=== PATIENT | female | born 1980 | race Caucasian/White ===

== ENCOUNTER 2016-10-09 01:08 | Emergency (ER) | payer MEDICAID ==
[~2016-10-09] VITALS: Ht 154.9 cm; Wt 67.1 kg
[~2016-10-09 01:08] MED LIST: PERC5TAB12 PO; PREN0.01 PO
[2016-10-09] MEDS ORDERED: LACTATED RINGER'S 1000 ML INJ 500 ML IV ONE (02:00)
[2016-10-09] MEDS ORDERED: TERBUTALINE INJ 1 MG/ML AMP SQ ONE ×2 (02:00→03:45)
--- NOTE | 2016-10-09 02:06 | PD ---
HPI Chief Complaint Uterine contractions Date Seen: October 09, 2016 Time Seen: 01:45 Travel History International Travel<30 Days: No Contact w/Intl Traveler<30Days: No Known Affected Area: No History of Present Illness HPI Pt is a with EDC 11-21-2016 , making her 33 weeks and 6 days gestation, presenting with uterine contractions that started earlier during the night. Contractions subsequently spaced out and she was able to fall asleep but was then woken up from sleep with another wave of contractions. Contractions are now about 3-4 mnutes apart. No vaginal bleeding, no leaking of active. She reports active FMs No urinary symptoms. No fevers. care under Dr Nela Lopez, this previously uncomplicated. Para: 7 : 6 Miscarriage: 0 : 0 History Obstetric History Obstetric History Pt had c section with second . She has had x4 All deliveries have been at 35 to 36 weeks Past Surgical History Narrative Surgical C Section x 1 Family History Family History: Negative Social History Alcohol Use: No Tobacco Use: No Substance Abuse: No Allergies-Medications (Allergen,Severity, Reaction): Coded Allergies: No Known Allergies (Verified , 10/09/16) Home Meds Active Scripts Nitrofurantoin Monohydrate Macrocrystals (Macrobid)100 Mg [id number] Mg PO BID #10 CAP Ref 0 Prov:Rojelio Huerta MD 10/09/16 Reported Medications Multivit/Min/Fol Ac/Iron/Pren ( Vit ( Plus)) Tab1 Tab PO DAILY #30 Ref 0 08/01/10 Discontinued Reported Medications Oxycodone-Acetaminophen 5-325 mg (Percocet 5-325 mg)Oxycodone 5/325 Acetaminophen Tab1 Tab PO Q6H PRN (PAIN) #30 TAB 11/05/13 Review of Systems Except as stated in HPI: all other systems reviewed are Neg Physical Exam Narrative GENERAL: Well-nourished, well-developed patient. SKIN: Warm and dry. HEAD: Normocephalic and atraumatic. EYES: No scleral icterus. No injection or drainage. ENT: No nasal drainage noted. Mucous membranes pink. Airway patent. NECK: Supple, trachea midline. No JVD. CARDIOVASCULAR: Regular rate and rhythm without murmurs, gallops, or rubs. RESPIRATORY: Breath sounds equal bilaterally. No accessory muscle use. BREASTS: Bilateral exam showed no masses , no retractions, no nipple discharge. ABDOMEN/GI: Abdomen soft, non-tender, bowel sounds present, no rebound, no guarding Gravid to [34-] weeks size Fundal Height: [34cm-] GENITOURINARY: External Genitalia: intact and normal in appearance BUS glands: [-] Cervix: [soft-] Dilatation: [1-2cm] Effacement: [50%] Station: [-3] Presentation: [vertex-] Membranes: [intact] Uterine Contractions: [q 3-4 minutes-] FHT's: Category: [I-] Baseline: [120] Reactive: [YES-] Variability: good[-] Decels: [-] EXTREMITIES: No cyanosis or edema. BACK: Nontender without obvious deformity. No CVA tenderness. NEUROLOGICAL: Awake and alert. Motor and sensory grossly within normal limits. Five out of 5 muscle strength in all muscle groups. Normal speech. Data Data Vital Signs Reviewed: Yes Orders UA, CBC, BMP SQ Terbutaline x 1 MDM Medical Record Reviewed: Yes Plan 36 yo at 33 weeks and 6 days, with contractions but no cervical change. Pt received first dose betamethasone 12mg IM today. We plan second dose Betamethasone 10/10/2016. UA suggestive of UTI. Ancef 2G given and to complete PO MACROBID Diagnosis Diagnosis: Primary Impression: contractions Additional Impression: UTI (urinary tract infection) Disposition: 01 DISCHARGE HOME Condition: Stable Scripts Nitrofurantoin Monohydrate Macrocrystals (Macrobid)100 Mg [id number] Mg PO BID #10 CAP Ref 0 Prov:Rojelio Huerta MD 10/09/16 Patient Instructions: Labor (ED), Urinary Tract Infection in (ED) Rojelio Huerta MD October 09, 2016 02:06
[2016-10-09 02:15] LABS: BACTERIA, URINE RARE /hpf; BLOOD, URINE SMALL (NEG); GLUCOSE,URINE NEG (NEG); KETONE, URINE 40 mg/dL (NEG); MUCUS URINE FEW /lpf (OCC); NITRITE,URINE NEG (NEG); RENAL EPITHELIAL CELLS <1 /hpf; SQUAMOUS EPITHELIAL CELL URINE 1 /hpf (0-5); TRANSITIONAL EPI CELLS, URINE <1 /hpf; URINE COLOR LIGHT-YELLOW (YELLW/STRAW)
[2016-10-09] MEDS ORDERED: BETAMETHASONE SOD PHOS/ACETATE SUSP 30 MG/5 ML VIAL IM ONE (02:15)
[2016-10-09 02:16] LABS: COMMENT (UR) CULTURE INDICATED; CULTURE IF INDICATED CULTURE INDICATED
[2016-10-09 02:21] LABS: AUTOMATED NEUTROPHIL # 6.3 TH/MM3 (1.8-7.7); BASOPHIL % 0.2 % (0.0-2.0); EOSINOPHIL # 0.1 TH/MM3 (0-0.4); EOSINOPHIL % 0.8 % (0.0-4.0); HEMO FLAGS DIFF FINAL; LYMPH % 20.4 % (9.0-44.0); LYMPHOCYTE # 1.9 TH/MM3 (1.0-4.8); MEAN CELL VOLUME 81.4 FL (80.0-100.0); MEAN CORPUSCULAR HEMOGLOBIN 28.4 PG (27.0-34.0); MEAN CORPUSCULAR HGB CONC 34.9 % (32.0-36.0); MONO % 10.3 % (0.0-8.0); NEUT % 68.3 % (16.0-70.0); PLATELET COUNT 207 TH/MM3 (150-450); WHITE BLOOD COUNT 9.3 TH/MM3 (4.0-11.0)
[2016-10-09 02:39] LABS: BICARBONATE 20.8 MEQ/L (21.0-32.0); POTASSIUM 3.4 MEQ/L (3.5-5.1)
[2016-10-09] MEDS ORDERED: ceFAZolin 2 GM PREMIX 50 ML IV ONE (03:30)
[2016-10-09] MEDS ORDERED: MACR100C2 PO (03:31)
[2016-10-10] MEDS ORDERED: BETAMETHASONE SOD PHOS/ACETATE SUSP 30 MG/5 ML VIAL IM ONE (07:15)
== END 2016-10-09 04:17 | disposition home or self-care (01) ==
LOC: HOBED 01:08
DX: O60.03 Preterm labor without delivery, third trimester (principal); O23.43 Unspecified infection of urinary tract in pregnancy, third trimester; B96.89 Other specified bacterial agents as the cause of diseases classified elsewhere; Z3A.33 33 weeks gestation of pregnancy
CPT/HCPCS: 80048; 81001; 85025; 87086; 96361; 96365; 96372; 99284; J0690; J0702; J3105; J7120

== ENCOUNTER → 2016-10-10 | Outpatient (CLI) | payer MEDICAID ==
[~2016-10-10] MED LIST changes: +BETAMETHASONE SOD PHOS/ACETATE SUSP 30 MG/5 ML VIAL IM ONE; +MACR100C2 PO; -PERC5TAB12 PO
== END ==
LOC: HPND 07:32
PROVIDERS: ATTEND Obstetrics & Gynecology
DX: O26.93 Pregnancy related conditions, unspecified, third trimester (principal); O60.03 Preterm labor without delivery, third trimester
CPT/HCPCS: 96372; J0702

== ENCOUNTER 2016-10-23 21:52 | Inpatient (IN) | payer MEDICAID ==
[~2016-10-23 21:52] MED LIST changes: -BETAMETHASONE SOD PHOS/ACETATE SUSP 30 MG/5 ML VIAL IM ONE
--- NOTE | 2016-10-23 22:17 | PD ---
Allergies-Medications (Allergen,Severity, Reaction): Coded Allergies: No Known Allergies (Verified , 10/09/16) Home Meds Active Scripts Nitrofurantoin Monohydrate Macrocrystals (Macrobid)100 Mg [id number] Mg PO BID #10 CAP Ref 0 Prov:Rojelio Huerta MD 10/09/16 Reported Medications Multivit/Min/Fol Ac/Iron/Pren ( Vit ( Plus)) Tab1 Tab PO DAILY #30 Ref 0 08/01/10 Physical Exam AFVSS BP 123/88 Narrative GENERAL: Well-nourished, well-developed patient. SKIN: Warm and dry. HEAD: Normocephalic and atraumatic. EYES: No scleral icterus. No injection or drainage. ENT: No nasal drainage noted. Mucous membranes pink. Airway patent. NECK: Supple, trachea midline. No JVD. CARDIOVASCULAR: Regular rate and rhythm without murmurs, gallops, or rubs. RESPIRATORY: Breath sounds equal bilaterally. No accessory muscle use. BREASTS: Bilateral exam showed no masses , no retractions, no nipple discharge. ABDOMEN/GI: Abdomen soft, non-tender, bowel sounds present, no rebound, no guarding Gravid to [-] weeks size Fundal Height: [-] GENITOURINARY: External Genitalia: intact and normal in appearance BUS glands: [-] Cervix: [-] Dilatation: [-] Effacement: [-] Station: [-] Presentation: [-] Membranes: [intact or ruptured] Uterine Contractions: [-] FHT's: Category: [-] Baseline: [-] Reactive: [-] Variability: [-] Decels: [-] EXTREMITIES: No cyanosis or edema. BACK: Nontender without obvious deformity. No CVA tenderness. NEUROLOGICAL: Awake and alert. Motor and sensory grossly within normal limits. Five out of 5 muscle strength in all muscle groups. Normal speech. MDM Interpretation(s) IUP at 35w 6d Toshia Morris MD Oct 23, 2016 22:17 MDM Interpretation(s) IUP at 35w 6d Toshia Morris MD Oct 23, 2016 22:17
--- NOTE | 2016-10-23 22:26 | PD ---
HPI Travel History International Travel<30 Days: No Contact w/Intl Traveler<30Days: No Known Affected Area: No History of Present Illness HPI at 35w 6d with c/o contractions. Denies LOF/VB. Reports good FM. Reports admission recently for labor- steroid course administered. Para: 6 : 7 History Past Medical History Medical History: Denies Significant Hx Obstetric History Obstetric History C/S x 1, x 5 (all ) Past Surgical History Narrative Surgical C/S Family History Family History: Negative Social History Alcohol Use: No Tobacco Use: No Substance Abuse: No Allergies-Medications (Allergen,Severity, Reaction): Coded Allergies: No Known Allergies (Verified , 10/09/16) Home Meds Active Scripts Nitrofurantoin Monohydrate Macrocrystals (Macrobid)100 Mg [id number] Mg PO BID #10 CAP Ref 0 Prov:Rojelio Huerta MD 10/09/16 Reported Medications Multivit/Min/Fol Ac/Iron/Pren ( Vit ( Plus)) Tab1 Tab PO DAILY #30 Ref 0 08/01/10 Review of Systems Except as stated in HPI: all other systems reviewed are Neg Physical Exam AFVSS BP 123/88 Narrative GENERAL: Well-nourished, well-developed patient. SKIN: Warm and dry. HEAD: Normocephalic and atraumatic. EYES: No scleral icterus. No injection or drainage. ENT: No nasal drainage noted. Mucous membranes pink. Airway patent. NECK: Supple, trachea midline. No JVD. CARDIOVASCULAR: Regular rate and rhythm without murmurs, gallops, or rubs. RESPIRATORY: Breath sounds equal bilaterally. No accessory muscle use. BREASTS: Bilateral exam showed no masses , no retractions, no nipple discharge. ABDOMEN/GI: Abdomen soft, non-tender, bowel sounds present, no rebound, no guarding Gravid to [-] weeks size Fundal Height: [-] GENITOURINARY: External Genitalia: intact and normal in appearance BUS glands: [-] Cervix: [-] Dilatation: [4-5] Effacement: [60] Station: [-2] Presentation: [-] Membranes: [intact or ruptured] Uterine Contractions: [contractions q1-2 minutes] FHT's: Category: [1] Baseline: [150] Reactive: [yes] Variability: [moderate] Decels: [none] EXTREMITIES: No cyanosis or edema. BACK: Nontender without obvious deformity. No CVA tenderness. NEUROLOGICAL: Awake and alert. Motor and sensory grossly within normal limits. Five out of 5 muscle strength in all muscle groups. Normal speech. Data Data Vital Signs Reviewed: Yes MDM Interpretation(s) IUP at 35w 6d, labor. Plan Will admit. Dr. Self noted. Diagnosis Diagnosis: Primary Impression: 35 weeks gestation of Additional Impression: Irregular uterine contractions Toshia Morris MD Oct 23, 2016 22:26
[2016-10-23] MEDS ORDERED: LACTATED RINGER'S 1000 ML INJ 1,000 ML IV PRN (22:50)
[2016-10-23] MEDS ORDERED: OXYTOCIN 30 UNITS-500ML PREMIX 500 ML IV ONE (23:00)
[2016-10-23] MEDS ORDERED: SODIUM CHLORID 0.9% 500 ML INJ 500 ML IV PRN (23:00)
[2016-10-23] MEDS ORDERED: MINERAL OIL 10 ML VIAL TOPICAL PRN (23:00)
[2016-10-23] MEDS ORDERED: LIDOCAINE HCL 1% 50 ML VIAL INFIL PRN (23:00)
[2016-10-23] MEDS ORDERED: LIDOCAINE HCL 1% 50 ML VIAL I-DERMAL PRN (23:00)
[2016-10-23] MEDS ORDERED: CITRIC ACID-SODIUM CITRATE LIQ 30 ML UDC PO SCH (23:00)
[2016-10-23] MEDS: LACTATED RINGER'S 1000 ML INJ 1,000 ML IV SCH (23:01)
[2016-10-23] MEDS ORDERED: SODIUM CHLOR 0.9% 1000 ML INJ 1,000 ML IV PRN (23:10)
[2016-10-23 23:14] LABS: AUTOMATED NEUTROPHIL # 5.9 TH/MM3 (1.8-7.7); BASOPHIL % 0.4 % (0.0-2.0); EOSINOPHIL # 0.1 TH/MM3 (0-0.4); EOSINOPHIL % 0.7 % (0.0-4.0); HEMO FLAGS DIFF FINAL; LYMPH % 20.7 % (9.0-44.0); LYMPHOCYTE # 1.9 TH/MM3 (1.0-4.8); MEAN CELL VOLUME 82.5 FL (80.0-100.0); MEAN CORPUSCULAR HEMOGLOBIN 27.7 PG (27.0-34.0); MEAN CORPUSCULAR HGB CONC 33.6 % (32.0-36.0); MONO % 13.1 % (0.0-8.0); NEUT % 65.1 % (16.0-70.0); PLATELET COUNT 202 TH/MM3 (150-450); RED BLOOD COUNT 4.24 MIL/MM3 (4.00-5.30); RED CELL DISTRIBUTION WIDTH 15.1 % (11.6-17.2); WHITE BLOOD COUNT 9.1 TH/MM3 (4.0-11.0)
[2016-10-23] MEDS ORDERED: fentaNYL 2MCG-BUPIV 0.125% INJ 100 ML ONE (23:20)
[2016-10-23 23:40] VITALS: BP 126/85; PULSE 90
[2016-10-23 23:45] VITALS: BP 126/87; PULSE 92
[2016-10-23 23:47] LABS: BACTERIA, URINE RARE /hpf; BLOOD, URINE NEG (NEG); COMMENT (UR) CULT NOT INDICATED; CULTURE IF INDICATED CULT NOT INDICATED; GLUCOSE,URINE 70 mg/dL (NEG); KETONE, URINE NEG (NEG); NITRITE,URINE NEG (NEG); PH, URINE 6.5 (5.0-8.5); SQUAMOUS EPITHELIAL CELL URINE 1 /hpf (0-5); URINE COLOR LIGHT-YELLOW (YELLW/STRAW)
[2016-10-23 23:50] VITALS: PULSE 91; PULSE 93
[2016-10-23 23:53] VITALS: BP 125/66; PULSE 89
[2016-10-24] VITALS (17 sets, daily range): BP systolic 92–114; BP diastolic 51–76; PULSE 7–125; RESP 14–18; TEMP 97.6–98.3
[2016-10-24] MEDS ORDERED: DO NOT ADMINISTER ANTICOAGULANTS PRN (00:15)
[2016-10-24] MEDS ORDERED: ePHEDrine/NS 25 MG/5 ML SYR IV PRN (00:15)
[2016-10-24] MEDS ORDERED: NO SYSTEM NARCOTICS PRN (00:15)
[2016-10-24] MEDS ORDERED: fentaNYL 2MCG-BUPIV 0.125% 100 ML EPIDURAL SCH (00:15)
[2016-10-24] MEDS ORDERED: OXYTOCIN 30 UNITS-500ML PREMIX 500 ML IV SCH (00:30)
--- NOTE | 2016-10-24 00:30 | PD.LABORPN ---
Subjective Subjective pain controlled, awaiting epidural Objective Vital Signs Vital Signs Date Time Temp Pulse Resp B/P Pulse Ox O2 Delivery O2 Flow Rate FiO2 10/24/16 00:09 93 102/65 10/24/16 00:00 125 107/65 10/24/16 00:00 125 107/65 10/23/16 23:53 89 125/66 10/23/16 23:50 91 10/23/16 23:50 93 10/23/16 23:45 92 126/87 10/23/16 23:45 92 10/23/16 23:40 90 126/85 Objective Pelvic Exam: Cervix: [-] Dilatation: [-] 7 Effacement: [-] 70 Station: [-] -2 Presentation: [-] vtx Membranes: [intact or ruptured] ruptured Uterine Contractions: [-] FHT's: Category: [-] 1 Baseline: [-] 140s Reactive: [-] yes Variability: [-] Decels: [-] Assessment/Plan Problem List: (1) 35 weeks gestation of Plan: for epidural now will augment Silvestre Peoples MD Oct 24, 2016 00:30
[2016-10-24] MEDS: LACTATED RINGER'S 1000 ML INJ 1,000 ML IV SCH (00:35)
[2016-10-24] MEDS ORDERED: OXYTOCIN 10 UNIT/ML AMP XX PRN (03:15)
[2016-10-24] MEDS ORDERED: BENZOCAINE 20% TOPICAL SPRAY 60 ML CAN TOPICAL PRN (03:15)
[2016-10-24] MEDS ORDERED: oxyCODONE/ACETAMINOPHEN 5 MG/325 MG TAB PO PRN ×2 (03:15)
[2016-10-24] MEDS ORDERED: SODIUM CHLORIDE 0.9% FLUSH 10 ML FLUSH IV FLUSH PRN (03:15)
[2016-10-24] MEDS ORDERED: ALUMINUM/MAGNESIUM/SIMETH 30 ML CUP PO PRN (03:15)
[2016-10-24] MEDS ORDERED: OXYTOCIN 30 UNITS-500ML PREMIX 500 ML IV ONE (03:15)
[2016-10-24] MEDS ORDERED: DOCUSATE SODIUM 50 MG/SENNA 8.6 MG TAB PO PRN (03:15)
[2016-10-24] MEDS ORDERED: ONDANSETRON ODT 4 MG TAB PO PRN (03:15)
[2016-10-24] MEDS ORDERED: WITCH HAZEL 50%/GLYCERIN 12.5% 40 PAD JAR TOPICAL PRN (03:15)
[2016-10-24] MEDS ORDERED: ZOLPIDEM TARTRATE 5 MG TAB PO PRN (03:15)
--- NOTE | 2016-10-24 03:18 | PD.OB.DELI ---
Delivery Date: Oct 24, 2016 Anesthesia: Epidural Episiotomy: None Vaginal Delivery: Normal Presentation: Occiput anterior Nuchal Cord: None Delayed cord clamping (45 sec): Yes Infant: Female, Single One Minute : 9 Five Minute : 9 Weight: 5-14 Placenta: Spontaneous delivery, Intact, 3 vessel cord Laceration: No lacerations Silvestre Self MD Oct 24, 2016 03:17
[2016-10-24] MEDS ORDERED: SODIUM CHLORIDE 0.9% FLUSH 10 ML FLUSH IV FLUSH SCH (09:00)
[2016-10-24] MEDS: IBUPROFEN 600 MG TAB PO PRN ×2 (12:06→17:48)
[2016-10-24] MEDS: ACETAMINOPHEN 325 MG TAB PO PRN ×2 (12:06→17:48)
--- NOTE | 2016-10-24 12:57 | HHI.OB ---
Subjective Post Day: 0 Remarks Pt doing well, no co Objective Vitals/I&O Vital Signs Date Time Temp Pulse Resp B/P Pulse Ox O2 Delivery O2 Flow Rate FiO2 10/24/16 07:30 98.3 10/24/16 07:30 88 16 109/74 10/24/16 05:45 98.1 10/24/16 05:45 78 14 92/61 10/24/16 05:00 89 110/71 10/24/16 04:30 71 109/70 10/24/16 04:00 94 114/76 10/24/16 03:34 98.1 10/24/16 03:30 85 112/75 10/24/16 03:18 96 113/76 10/24/16 02:30 90 97/58 10/24/16 02:00 89 10/24/16 01:30 82 94/51 10/24/16 01:27 97.8 18 10/24/16 01:00 96 99/67 10/24/16 00:30 99 101/68 10/24/16 00:09 93 102/65 10/24/16 00:00 125 107/65 10/24/16 00:00 125 107/65 10/23/16 23:53 89 125/66 10/23/16 23:50 91 10/23/16 23:50 93 10/23/16 23:45 92 126/87 10/23/16 23:45 92 10/23/16 23:40 90 126/85 Objective Remarks GENERAL: Well-nourished, well-developed patient. CARDIOVASCULAR: Regular rate and rhythm without murmurs, gallops, or rubs. RESPIRATORY: Breath sounds equal bilaterally. No accessory muscle use. ABDOMEN/GI: Abdomen soft, non-tender. Fundus: Firm, non-tender at umbilicus. GENITOURINARY: Light to moderate bleeding. EXTREMITIES: No cyanosis or edema, non-tender, without signs of DVT. Medications and IVs Current Medications Medications (Trade) Dose Ordered Sig/Kirill Route Start Time Stop Time Status Last Admin Lactated Ringer's 1,000 ml @ 125 mls/hr Q8H IV 10/23/16 22:50 10/24/16 00:35 Lactated Ringer's 1,000 ml @ 3,000 mls/hr Q20M PRN IV 10/23/16 22:50 Sodium Chloride 500 ml @ 1,000 mls/hr ONCE PRN IV 10/23/16 23:00 10/26/16 22:59 (NS 1000 ml Inj) 1,000 ml @ 100 mls/hr Q10H PRN IV 10/23/16 23:10 (fentaNYL INJ) 50 mcg Q1H PRN IV PUSH 10/23/16 23:00 (fentaNYL INJ) 100 mcg Q1H PRN IV PUSH 10/23/16 23:00 (Muri-Lube Oil) 10 ml UNSCH PRN TOPICAL 10/23/16 23:00 Miscellaneous Information No systemic narcotics to be given except... UNSCH PRN .XX 10/24/16 00:15 10/25/16 00:14 Miscellaneous Information DO NOT ADMINISTER ANY ANTICOAGUL... UNSCH PRN .XX 10/24/16 00:15 10/25/16 00:14 (fentaNYL 2MCG-BUPIV 0.125% INJ) 100 ml @ 0 mls/hr TITRATE EPIDURAL 10/24/16 00:15 10/24/16 00:34 Ephedrine Sulfate 10 mg 10 mg UNSCH PRN IV 10/24/16 00:15 10/25/16 00:14 (Pitocin 30 Units-NS 500 ml Premix) 500 ml @ 0 mls/hr TITRATE IV 10/24/16 00:30 10/24/16 00:43 (NS Flush) 2 ml BID IV FLUSH 10/24/16 09:00 (NS Flush) 2 ml UNSCH PRN IV FLUSH 10/24/16 03:15 (Tylenol) 650 mg Q4H PRN PO 10/24/16 03:15 10/24/16 12:06 (Motrin) 600 mg Q6H PRN PO 10/24/16 03:15 10/24/16 12:06 (Percocet 5-325 Mg) 1 tab Q4H PRN PO 10/24/16 03:15 (Percocet 5-325 Mg) 2 tab Q4H PRN PO 10/24/16 03:15 (Americaine 20% Top Spr) 1 spray Q4H PRN TOPICAL 10/24/16 03:15 (Tucks Pads) 1 applic QID PRN TOPICAL 10/24/16 03:15 (Hailey-Colace) 2 tab Q12H PRN PO 10/24/16 03:15 10/24/16 12:06 (Ambien) 5 mg HS PRN PO 10/24/16 03:15 (M-M-R Ii Inj) 0.5 ml ONCE ONCE SQ 10/24/16 16:00 10/24/16 16:01 (Boostrix Inj) 0.5 ml ONCE ONCE IM 10/24/16 16:00 10/24/16 16:01 (Mag-Al Plus Susp Liq) 15 ml Q8H PRN PO 10/24/16 03:15 (Zofran Odt) 4 mg Q6H PRN PO 10/24/16 03:15 Assessment/Plan Problem List: (1) 35 weeks gestation of Plan: for epidural now will augment prn Assessment and Plan PPD # 0 s/p doing well, plan for discharge ppd 1 or 2 Nela Salazar MD Oct 24, 2016 12:57
[2016-10-24] MEDS ORDERED: MEASLES, MUMPS, RUBELLA VACCINE 0.5 ML VIAL SQ ONE (16:00)
[2016-10-24] MEDS ORDERED: DIPHTH/TETANUS/ACEL PERTUSSIS (BOOSTER) 0.5 ML VIAL/PFS IM ONE (16:00)
[2016-10-25 08:00] VITALS: BP 114/73; PULSE 92; RESP 18; TEMP 98
--- NOTE | 2016-10-25 15:28 | HHI.DCPOC ---
Discharge Care Plan Your Health Problems Are: Vaginal delivery Report Symptoms to Your Doctor -Temperature above 100.5 degrees -Redness, of incision or excessive or foul smelling drainage -Unusual pain or calf pain -Increased vaginal bleeding -Painful or difficulty urinating -Feelings of extreme sadness or anxiety after 2 weeks Goals to Promote Your Health * To prevent worsening of your condition and complications * To maintain your health at the optimal level Directions to Meet Your Goals Take your medications as prescribed Follow your dietary instruction Follow activity as directed Ensure plenty of rest for recovery Drink fluids for hydration Keep your appointments as scheduled Take your immunizations and boosters as scheduled If your symptoms worsen call your PCP, if no PCP go to Urgent Care Center or Emergency Room Smoking is Dangerous to Your Health. Avoid second hand smoke Call the 24-hour crisis hotline for domestic abuse at Nela Salazar MD Oct 25, 2016 15:28
--- NOTE | 2016-10-25 15:31 | HHI.DS ---
Admission Date Oct 23, 2016 at 22:33 Discharge Date: Oct 25, 2016 Admitting Diagnosis IUP 36 wks in active labor Diagnosis: Delivery Date: Oct 24, 2016 Vaginal Delivery: Normal : Female, Single Brief History at 35w 6d with c/o contractions. Denies LOF/VB. Reports good FM. Reports admission recently for labor- steroid course administered. Pt Condition on Discharge: Good Discharge Disposition: Discharge Home Discharge Instructions Diet Instructions: As Tolerated, No Restrictions Activities You Can Perform: Pelvic Rest Activities to Avoid: Sexual Activity Nela Salazar MD Oct 25, 2016 15:31
== END 2016-10-25 16:10 | disposition home or self-care (01) | DRG 775 ==
LOC: HOBED 21:52 → H2EB 22:33 → H1EA 10-24 05:19
PROVIDERS: ADMIT Obstetrics & Gynecology; ATTEND Obstetrics & Gynecology
PROC: 3E0S3CZ (ICD-10-PCS; 2016-10-23)
PROC: 00HU33Z Insertion of Infusion Device into Spinal Canal, Percutaneous Approach (ICD-10-PCS; 2016-10-23)
PROC: 10E0XZZ Delivery of Products of Conception, External Approach (ICD-10-PCS; principal; 2016-10-24)
DX: O60.14X0 Preterm labor third trimester with preterm delivery third trimester, not applicable or unspecified (principal); O34.219 Maternal care for unspecified type scar from previous cesarean delivery; Z37.0 Single live birth; Z3A.36 36 weeks gestation of pregnancy
CPT/HCPCS: 81001; 85025; 90715; 99285; J2590; J7120